=== PATIENT | female | born 1995 | race Caucasian/White ===

== ENCOUNTER 2017-04-03 16:49 | Inpatient (IN) | payer OTHER ==
[~2017-04-03] VITALS: Ht 165.1 cm; Wt 48.1 kg
--- NOTE | 2017-04-03 18:45 | NUR ---
Intake assessment Client's vital signs BP 117/64, P 92, T 98.3, RR 16, spO2 @ 99% on RA, pain 0/10.
--- NOTE | 2017-04-03 19:30 | NUR ---
Intake Assessment Patient is noted downstairs in intake office. patient noted to be very restless and emotional. Patient is a 21 year old female arriving from [place] to [facility] and states "Im here to find myself." patient verbalizes allergies to PCN, wishes to be full code during our care, follows a regular diet while at home. Patient is noted to be a poor historian and unable to provide a proper substance use history. Patient is noted to be very dishelved, unable to sit still while answering assessment questions. patient reports of living with her parents and pays her rent with "smiles." Patient is self employed. Patient reports past medical history of Anxiety, Depression, ADHD, and Dyslexia. Patient reports of previously living in sober living were she was "kicked out" due to use of LSD. She reports of 2 months soberiety while she was living in sober living from Jan 2017 to Mar 2017. Patient denies suicidal ideations and states "I love myself." Patient reports her only use as methamphetamines via intranasal with unknown amount. patient reports her last use "when the sun was coming up and now the sun is down." all information reviewed with
[2017-04-03] MEDS ORDERED: MAGNESIUM HYDROXIDE 30 ML LIQUID UDC PO PRN (20:00)
[2017-04-03] MEDS ORDERED: ACETAMINOPHEN 325 MG TABLET PO PRN (20:00)
[2017-04-03] MEDS ORDERED: HYDROXYZINE PAMOATE 25 MG CAPSULE PO PRN (20:00)
[2017-04-03] MEDS ORDERED: DICYCLOMINE HCL 20 MG TABLET PO PRN (20:00)
[2017-04-03] MEDS ORDERED: IBUPROFEN 600 MG TABLET PO PRN (20:00)
[2017-04-03] MEDS ORDERED: MAG HYDROX/AL HYDROX/SIMETH 30 ML LIQUID UDC PO PRN (20:00)
[2017-04-03] MEDS ORDERED: MIRALAX 17 GM POWD.PACK PO PRN (20:00)
[2017-04-03] MEDS ORDERED: ONDANSETRON 4 MG/2 ML VIAL IM PRN (20:00)
[2017-04-03] MEDS ORDERED: LORAZEPAM 2 MG/1 ML VIAL IM PRN (20:00)
[2017-04-03] MEDS ORDERED: LOPERAMIDE HCL 2 MG CAPSULE PO PRN ×2 (20:00)
[2017-04-03] MEDS ORDERED: diphenhydrAMINE 50 MG CAPSULE PO PRN (20:00)
[2017-04-03] MEDS ORDERED: LORAZEPAM 1 MG TABLET PO PRN ×2 (20:00)
[2017-04-03] MEDS ORDERED: ONDANSETRON ODT 4 MG TAB.RAPDIS SL PRN (20:00)
[2017-04-03] MEDS ORDERED: CLONIDINE HCL 0.1 MG TABLET PO PRN (20:00)
[2017-04-03] MEDS ORDERED: METHOCARBAMOL 750 MG TABLET PO PRN (20:00)
[2017-04-03 20:18] LABS: *URINE HCG, QUAL NEGATIVE (NEGATIVE)
[2017-04-03 20:28] LABS: *AMPHETAMINE, URINE POSITIVE (NEGATIVE); *BARBITURATE, URINE NEGATIVE (NEGATIVE); *CANNABINOID, URINE POSITIVE (NEGATIVE); *COCCAINE, URINE NEGATIVE (NEGATIVE); *OPIATE, URINE NEGATIVE (NEGATIVE); *PHENCYCLIDINE SCREEN,URINE NEGATIVE (NEGATIVE)
[2017-04-03] MEDS ORDERED: LORAZEPAM 1 MG TABLET PO ONE (21:00)
--- NOTE | 2017-04-03 23:57 | NUR ---
Admission Patient is a 21 year old female, from [place], presenting to [facility] to receive treatment for her Polysubstance use. Patient finally argreed to continue with admission after speaking with administrative staff and was escorted on to unit by female intake. Body check rendered with both intake and primary nurse present. Skin noted intact. Urine drug screen completed prior to arrival onto unit. Patient continues to be very hyperverbal, restless, anxious, disorganized thought process, and noted with flight of ideas. Patient is a poor historian and is unable to answer questions appriopatly. Patient is alert and oriented to name and situation. Breathing is even and non labored. Patients height noted at 5'5 and weight noted at 106 lbs. Patient verbalized allergies to PCN, wishes to be full code, following a regular diet. BUE and BLE all noted WNL with no edema noted. Patient is ambulatory with no assistance needed. Patient denies suicidal and homicidal ideations. Patient explained her substance use as: Methamphetamines, x1 use only, using an unknown amount via intranasal, with the last use noted to be "the las time was when the sun was coming up and now the sun is down." all information reviewed with MD. Patient was asked to describe her signs and symptoms of withdrawal and patient states "I love drugs they make me feel good." Patient currently lives at home with her parents and is self-employed. Patient was placed on 1:1 for saftey. Admitting CIWA noted to be 10. Orders for Ativan 2mg to be given upon arrival to unit. All information relayed to MD with orders placed including PRN Medications. Labs to be rendered. Will administer medications accordingly. All needs attended to promptly. Will continue plan of care as ordered.
[2017-04-04 00:27] VITALS: BP 112/67
[2017-04-04] MEDS ORDERED: LORAZEPAM 1 MG TABLET ONE (00:28)
[2017-04-04 04:57] VITALS: BP 96/53
--- NOTE | 2017-04-04 07:04 | NUR ---
End of Shift Patient is in bed sleeping. Breathing even and non labored. Patient is a 21 year old female admitted on 04/03/17 for her Polysubstance Dependence and is currently receiving PRN medications for increased signs and symptoms of withdrawal. Allergies to PCN, wishes to be full code, following a regular diet, placed on fall and seizure precautions, and skin noted intact. Patient was placed on 1:1 for Safety. Admission CIWA noted to be 10. Patient received one time dose of Ativan 2mg upon admission for increased anxiety with medication noted to be effective. All needs attended to promptly. Will continue to monitor.
--- NOTE | 2017-04-04 07:05 | NUR ---
Start of Shift Freight Rate Specialist received report on 21 year old female admitted on 04/03/17 for Methamphetamine detoxification. Pt has allergies to PCN, is a full code and eats a regular diet. Reports a PMH of anxiety, depression, ADHD and dyslexia. Pt has been placed on 1:1 staffing for safety. Also placed on fall precautions. Pt was administered 2mg of Ativan upon being admitted and that was effective. Last CIwa 10, r/t anxiety and irritability. Freight Rate Specialist encountered in her room, calm and cooperative, A/O x4 and able to make needs known. Bed in low position with wheels locked and side rails up x2. Will continue to monitor, support and encourage according to plan of care.
[2017-04-04 08:34] VITALS: BP 119/64
[2017-04-04] MEDS ORDERED: TUBERCULIN,PURIF.PROT.DERIV. 5 TU/0.1 ML TEST ID ONE (09:00)
[2017-04-04 09:40] LABS: ALANINE AMINOTRANSFERASE 20 U/L (14-59); ALKALINE PHOSPHATASE 98 U/L (50-136); ASPARTATE AMINOTRANSFERASE 23 U/L (15-37); BILIRUBIN,TOTAL 0.7 mg/dL (0.2-1.0); CARBON DIOXIDE 25 mmol/L (21-32); CHLORIDE 97 mmol/L (98-107); CREATININE 0.8 mg/dL (0.6-1.3); GLUCOSE 73 mg/dL (74-106); MAGNESIUM 1.9 mg/dL (1.8-2.4); TOTAL PROTEIN, SERUM 8.2 g/dL (6.4-8.2); UREA NITROGEN, BLOOD 8 mg/dL (7-18)
[2017-04-04 09:45] LABS: POTASSIUM 2.8 mmol/L (3.5-5.1)
[2017-04-04 09:50] LABS: THYROID STIMULATING HORMONE 1.523 mIU/mL (0.358-3.740)
[2017-04-04 10:12] LABS: BASOPHILS % (AUTO) 0.1 % (0.0-2.0); EOSINOPHILS # (AUTO) 0.1 K/uL (0.0-0.7); EOSINOPHILS % (AUTO) 0.4 % (0.0-7.0); HEMATOCRIT 33.4 % (31.2-41.9); HEMOGLOBIN 11.3 g/dL (10.9-14.3); LYMPHOCYTES # (AUTO) 2.4 K/uL (20.0-40.0); LYMPHOCYTES % (AUTO) 16.9 % (20.5-74.5); MEAN CORPUSCULAR HEMOGLOBIN 28.4 uug (24.7-32.8); MEAN CORPUSCULAR HGB CONC 34 g/dL (32.3-35.6); MEAN CORPUSCULAR VOLUME 83.7 fL (75.5-95.3); MONOCYTES # (AUTO) 0.7 K/uL (2.0-10.0); MONOCYTES % (AUTO) 5.3 % (0-11); NEUTROPHILS # (AUTO) 10.9 K/uL (1.8-8.9); NEUTROPHILS % (AUTO) 77.3 % (31.5-64.5); PLATELET COUNT (AUTO) 312 K/uL (179-408); RED BLOOD CELL COUNT(AUTO) 3.99 MIL/uL (3.63-4.92); WHITE BLOOD COUNT (AUTO) 14.1 K/uL (3.8-11.8)
[2017-04-04 10:24] LABS: ETHANOL < 3 MG/DL (0-0)
[2017-04-04] MEDS ORDERED: BENZOCAINE/MENTH/CETYLPYRD LOZENGE MM PRN (11:30)
[2017-04-04] MEDS ORDERED: NICOTINE POLACRILEX 4 MG GUM-PK OF TEN BC PRN (11:30)
[2017-04-04] MEDS ORDERED: GUAIFENESIN SUGAR FREE 100 MG/5 ML UDC PO PRN (11:30)
[2017-04-04] MEDS ORDERED: NICOTINE 14 MG/24HR PATCH TD PRN (11:30)
--- NOTE | 2017-04-04 12:42 | NUR ---
MYRANDA Clements Pt requesting something for her cough. Pt requested Robitussin by name, stating, " that really works for me." Terminal Makeup Operator administered medication per order with pt tolerating well. Will continue to monitor, support and encourage according to plan of care.
[2017-04-04 12:56] VITALS: BP 124/76
[2017-04-04] MEDS ORDERED: POTASSIUM CHLORIDE 20 MEQ TAB.PRT.SR PO SCH (13:00)
--- NOTE | 2017-04-04 13:42 | NUR ---
MYRANDA Cleemnts Re-Assessment Pt endorses relief, stating, " that itch ain't there." Band Presser has not heard pt cough. Will continue to monitor, support and encourage according to plan of care.
[2017-04-04] MEDS ORDERED: HYDR-3895 PO (14:48)
[2017-04-04] MEDS ORDERED: TRAZ-144 PO (14:48)
[2017-04-04] MEDS ORDERED: IBUP-1955 PO (14:48)
[2017-04-04] MEDS ORDERED: GABA-534 PO (14:48)
[2017-04-04] MEDS: GABAPENTIN 300 MG CAPSULE PO SCH ×2 (15:33→21:00)
[2017-04-04 16:55] VITALS: BP 128/70
--- NOTE | 2017-04-04 17:39 | NUR ---
MD notification Centrifugal Screen Tender contacted Dr. Sorenson and informed the MD of pt's negative Flu and Strep cultures. No further orders received. Will continue to monitor, support and encourage according to plan of care.
[2017-04-04] MEDS: POTASSIUM CHLORIDE 20 MEQ TAB.PRT.SR PO SCH ×2 (17:59→18:33)
--- NOTE | 2017-04-04 17:59 | NUR ---
Potassium Refusal Pt is dramatic, labile and anxious. Pt states she is unable to swallow pills and attempts several times to swallow Potassium Pills to no avail. Pt becomes tearful and apologetic when unable to swallow. Hooker Machine Tender notified Dr. Sorenson of pt's inability to swallow potassium. No new orders currently. Will continue to monitor, support and encourage according to plan of care.
--- NOTE | 2017-04-04 19:06 | NUR ---
End of Shift Clerical Manager provided report on 21 year old female admitted on 04/03/17 for Methamphetamine detoxification. Pt has allergies to PCN, is a full code and eats a regular diet. Reports a PMH of anxiety, depression, ADHD and dyslexia, as well as Bi-Polar DO. Placed on fall precautions. Pt did not receive any PRN medication this shift and is not on a taper. Pt refused/unable to swallow her 1700 Potassium made aware. Last CIWA 4, r/t anxiety and irritability. Pt has been labile, tearful, dramatic and anxious. Pt has no insight into her illness. A/O x4 and able to make needs known. Bed in low position with wheels locked and side rails up x2.
[2017-04-04 20:30] VITALS: BP 126/73
[2017-04-04] MEDS ORDERED: TRAZODONE 50 MG TABLET PO PRN (21:00)
--- NOTE | 2017-04-04 23:07 | NUR ---
Start of Shift Patient Received. Patient is in activities room participating in group activities. Patient is a 21 year old female admitted on 04/03/17 for her Polysubstance Dependence. Allergies to PCN, wishes to be full code, following a regular diet, placed on fall and seizure precautions, and skin noted intact. Per endorsement, Patient was removed from 1:1. Patient has been noted to refuse medications including Potassium due to abnormal lab values. Patient was noted to be emotional, labile, racing thoughts, hyperverbal and hyperactive. Patient was given PRN Robitussin for noted cough. Last noted CIWA 4. All needs attended to promptly. Will continue to monitor.
[2017-04-05 00:31] VITALS: BP 146/86
--- NOTE | 2017-04-05 00:31 | NUR ---
Medications offered and Refused Patient is noted with elevated pulse rate. Medications offered and patient noted to refuse. patient states "Im not putting anything in my body that doesn't grow in the ground. I want to spend time researching each medication on my own because thats what I do I read. If it isnt [place], cigarettes, or caffeine then I dont want it right now." Risks and benefits explained. Patient continues to be hyperverbal, hyperactive, anxious, and flight of ideas. Patient is also noted to continuously go outside for cigarette breaks and states "Im not going to sleep because Im an insomniac. I love to stay up because I get high." encouraged patient to try and get sleep but patient refused and continued to focus on being an insomniac. all needs attended to promptly. Will continue to monitor. Addendum: 04/05/17 at 0041 by MIS CORREA LVN Amended: Links added.
[2017-04-05 04:20] VITALS: BP 131/74
--- NOTE | 2017-04-05 07:01 | NUR ---
End of Shift Patient is in bed sleeping. Breathing even and non labored. Patient is a 60 year old male admitted on 04/02/17 for ETOH Dependence and continues on a modified day Ativan taper. Patient was given PRN Benadryl for inability of falling asleep with medication noted to be effective. Patients last noted CIWA 3. Patient is able to make things known. All needs attended to promptly. Will continue plan of care as ordered. Addendum: 04/05/17 at 0704 by MIS CORREA LVN entered in error
--- NOTE | 2017-04-05 07:04 | NUR ---
End of Shift Patient is a 21 year old female admitted on 04/03/17 for her Polysubstance Dependence. Patient continues to refuse medications. patient continues to be hyperactive, hyperverbal, anxious, labile, and emotional. Patient also noted to focus on caffeine, [place], Cigarettes and states "those are the only things that help me calm down." Last noted CIWA 4. All needs attended to promptly. Will continue to monitor.
--- NOTE | 2017-04-05 07:05 | NUR ---
Start of Shift Supervisor Mails received report on 21 year old female admitted on 04/03/17 for Methamphetamine detoxification. Pt has allergies to PCN, is a full code and eats a regular diet. Reports a PMH of anxiety, depression, ADHD, dyslexia and Bi-Polar. Placed on fall precautions. Pt last CIWA of 8 recorded at 2030. Pt did not receive any PRN medication on the NOC. Supervisor Mails encountered in her room, calm and cooperative, A/O x4 and able to make needs known. Pt has a bright affect and incongruent affect. Bed in low position with wheels locked and side rails up x2. Will continue to monitor, support and encourage according to plan of care.
[2017-04-05 08:04] VITALS: BP 120/76
[2017-04-05 09:12] LABS: BASOPHILS % (AUTO) 0.3 % (0.0-2.0); EOSINOPHILS % (AUTO) 0.3 % (0.0-7.0); HEMOGLOBIN 11.1 g/dL (10.9-14.3); LYMPHOCYTES # (AUTO) 2.4 K/uL (20.0-40.0); LYMPHOCYTES % (AUTO) 29.8 % (20.5-74.5); MEAN CORPUSCULAR HEMOGLOBIN 28.4 uug (24.7-32.8); MEAN CORPUSCULAR HGB CONC 35 g/dL (32.3-35.6); MEAN CORPUSCULAR VOLUME 82.3 fL (75.5-95.3); MONOCYTES # (AUTO) 0.8 K/uL (2.0-10.0); MONOCYTES % (AUTO) 9.9 % (0-11); NEUTROPHILS # (AUTO) 4.8 K/uL (1.8-8.9); NEUTROPHILS % (AUTO) 59.7 % (31.5-64.5); PLATELET COUNT (AUTO) 367 K/uL (179-408); RED BLOOD CELL COUNT(AUTO) 3.89 MIL/uL (3.63-4.92)
[2017-04-05 09:26] LABS: CREATININE 0.8 mg/dL (0.6-1.3); PHOSPHOROUS 3.5 mg/dL (2.5-4.9); POTASSIUM 3.2 mmol/L (3.5-5.1)
[2017-04-05] MEDS: GABAPENTIN 300 MG CAPSULE PO SCH (09:59)
--- NOTE | 2017-04-05 09:59 | NUR ---
Medication Refusal Pt refused her 899 Neurontin d/t the medication, " making me lose my creativity." notified. Will continue to monitor, support and encourage according to plan of care
[2017-04-05 11:07] LABS: HEPATITIS B SURFACE AG Negative (Negative)
[2017-04-05 12:30] VITALS: BP 141/78
--- NOTE | 2017-04-05 12:39 | NUR ---
Behavior Pt has been having a difficult day. Pt is labile, dramatic, anxious and un-predictable. Pt presents with a labile mood and incongruent affect. Pt becomes tearful and uncontrollable when having basic discussions. Pt is unable to focus on task or thought content. Pt is tangential in speech and exhibits flight of ideas. Pt is disorganized and disconnected at times, answering questions with inappropriate responses. Pt perseverates on concepts related to control and wants an immediate appt with [facility], "so I can get on control." Pt denies any history of drug use, DRSU was positive for Methamphetamine and Cannabis. Pt has been unable to verbalize her needs, as they quickly change and are illogical at times. While in a therapy group, pt reportedly began attempting to stab herself with a pen, repeatedly. Grain Unloader Machine asked pt what happened in group and pt confirms her attempts to harm herself, stating, " I was trying to hurt myself, but I am alive, what's the problem." Pt becomes despondent and tearful and begins to tell fiction and nonfiction prose writer how she has failed and why she is stupid. Pt has written, " kill yourself" on her arm. Pt has been placed on 1:1 and is currently awaiting a LPS assessment. Will continue to monitor, support and encourage according to plan of care.
--- NOTE | 2017-04-05 13:39 | NUR ---
5150 Assessment/Transfer Report Pt was assessed by the PET for emotional instability and self-harm behavior. After assessing the pt, PET member, Huber, placed pt on a 5150 for SI and GD. Pt has been accepted to [facility] in [place] for psychiatric treatment. Pt was accepted by Dr. Gottlieb to [facility], room 427-A. Front Office Spec called report to RAMANA Edward at [facility]. Front Office Spec provided full report with no further comments, questions or concerns voiced. Front Office Spec also faxed over labs, face sheet, 5150 and all appropriate paperwork to Era in intake at [facility]. Pt is scheduled to be picked up at 1445 and transported to [facility].
--- NOTE | 2017-04-05 13:42 | NUR ---
placed a call to med response to transfer pt to [facility] 1445 with tracking number [id number] (spoke with Azeem)
--- NOTE | 2017-04-05 15:00 | NUR ---
pt was discharged from unit via ambulance, accompanied by 2 EMT'S, V/S WNL and in stable condition. pt is on a hold and will be transferred to [facility]
== END 2017-04-05 15:00 | DRG 897 ==
LOC: SRC 18:29
PROVIDERS: ADMIT Internal Medicine; ATTEND Internal Medicine
PROC: HZ2ZZZZ Detoxification Services for Substance Abuse Treatment (ICD-10-PCS; principal; 2017-04-03)
DX: F15.229 Other stimulant dependence with intoxication, unspecified (principal); F32.3 Major depressive disorder, single episode, severe with psychotic features; F15.259 Other stimulant dependence with stimulant-induced psychotic disorder, unspecified; E16.2 Hypoglycemia, unspecified; F41.9 Anxiety disorder, unspecified; E87.6 Hypokalemia; F90.9 Attention-deficit hyperactivity disorder, unspecified type; Z91.89 Other specified personal risk factors, not elsewhere classified; Z91.5 Personal history of self-harm; R48.0 Dyslexia and alexia; J04.0 Acute laryngitis; F12.929 Cannabis use, unspecified with intoxication, unspecified
CPT/HCPCS: 36415; 80307; 80324; 80349; 83735; 84100; 84443; 84703; 85025; 86403; 86580; 86592; 86705; 86803; 87070; 87340; 87400; 87806; A4663; G0480